=== PATIENT | male | born 1975 | race Caucasian/White ===

== ENCOUNTER 2016-04-03 12:39 | Emergency (ER) | payer SELFPAY ==
[2016-04-03] MEDS ORDERED: LORazepam 2 MG/ML DISP.SYRIN ONE (12:43)
[2016-04-03] MEDS ORDERED: LORazepam 2 MG/ML DISP.SYRIN IM ONE (12:48)
[2016-04-03 12:59] VITALS: BP 148/92
--- NOTE | 2016-04-03 13:05 | ERNOTE ---
Medical Problem HPI - Narrative Date of Service: 04/03/16 - General Chief Complaint: General Assessment Time Seen by Provider: 04/03/16 12:48 Source: patient, police Exam Limitations: other - patient answers questions appropriately, mild agitation. In handcuffs - Immun/Allergies/Home Medications Immunizations: IMMUNIZATION HX Immunizations Up to Date Yes History of Influenza Vaccine No Hx Pneumococcal Vaccination No Allergies/Adverse Reactions: Allergies morphine Allergy (Severe, Verified 04/03/16 12:47) amnesia Penicillins Allergy (Intermediate, Verified 04/03/16 12:47) Hives Home Medications: HOME MEDICATIONS Clonazepam 2 mg PO TID #90 tab 02/04/16 [Last Taken Unknown] Divalproex Sodium [Depakote ER] 3 tab PO HS #90 tab 02/04/16 [Last Taken Unknown ] Lurasidone HCl [Latuda] 80 mg PO DAILY #30 tab 02/04/16 [Last Taken Unknown] - History of Present History Narrative: Patient is brought in by police to be ok's to go to custodial. Arrested. he agrees that he has used methamphetamine. He relates he uses this "frequently". He denies other symptoms. Was not injured or tazered. No car accident. he was erratic and brought to the ED for clearance before custodial. He states he has used methamphetamine today and his presentation is consistent with this. No CP or SOB. No abdominal pain. He has an abrasion on his knee that does not appear infecteed but no underlying pain. Timing: constant Modifying Factors - (Improves): Present: other - none Modifying Factors - (Worsens): Present: other - none Review of Systems - Review of Systems Constitutional: Absent: fever Respiratory: Absent: shortness of breath Cardiology: Absent: chest pain Gastrointestinal/Abdominal: Absent: abdominal pain Musculoskeletal: Present: other - denies leg pain - Patient's Past Medical History Patient History - Medical: No pertinent hx Patient History - Cardiac/Respiratory: No pertinent hx Patient History - Cancer: No Hx of Cancer Patient History - Surgical Procedures: No surgical history Patient History - Other: None - Social History Living Situations: home Abuse History: No History of abuse Psych History: No pertinent hx Smoking Status: Current every day smoker Have you smoked in the past 12 months: Yes Alcohol Use: none Drug Use: meth - Immunizations Immunizations Up to Date: Yes Hx Pneumococcal Vaccination: No History of Influenza Vaccine: No Physical Exam - Physical Exam General Appearance: Present: alert, other - mild agitation but he answers questions appropriately. Eye Exam: Normal inspection: bilateral, PERRL: bilateral - No evidence of head injury Ears, Nose, Throat: Present: normal ENT inspection Neck: Present: normal inspection Respiratory: Present: no respiratory distress, normal breath sounds, no accessory muscle use, lungs clear, other - Mild tachycardia, c/w his mild agitation. Cardiovascular/Chest: Present: no murmur Gastrointestinal/Abdominal: Present: normal bowel sounds, nontender, soft Back Exam: Present: normal range of motion Extremity Exam: Present: other - older appearing abrasion right knee, no infection, no underlying tenderness. No deformity or signs of fracture clinically. 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 No motor or sensory deficits. Agitation c/w his reported meth use. No SI.. Absent: motor weakness Skin Exam: Absent: cyanosis ED Progress - Vital Signs Patient's Vital Signs:: I have reviewed the patient's vital signs. Vital Signs: Vital Signs 04/03/16 12:44 Temperature 36.1 C L Pulse Rate 111 H Respiratory 14 Rate O2 Sat by Pulse 98 Oximetry - Progress/Reassessment Chief Complaint: General Assessment Progress Note-Subjective: 04/03/16 13:03 I do not feel labs or imaging needed. His exam and mild agitation are c/w his reported meth use. I feel he is medically stable to go to custodial. They can bring him back if any new Sx develop. Departure - Departure Clinical Impression: Examination, general medical Disposition: Group Home Condition: Stable Additional Instructions: Follow-up with your doctor within 3 days for a re-check. Return for pain, thoughts of harming yourself or if your condition worsens or changes in any way.
== END 2016-04-03 13:08 ==
LOC: ER 12:39
DX: R45.1 Restlessness and agitation (principal); F17.210 Nicotine dependence, cigarettes, uncomplicated